=== PATIENT | male | born 1970 | race Caucasian/White ===

== ENCOUNTER → 2021-09-16 | Outpatient (CLI) | payer OTHER | END | disposition home or self-care (01) | LOC: RADMN 13:39 | PROVIDERS: ATTEND Legal Medicine | DX: M50.120 Mid-cervical disc disorder, unspecified level (principal); M25.78 Osteophyte, vertebrae; M25.511 Pain in right shoulder; M77.10 Lateral epicondylitis, unspecified elbow | CPT/HCPCS: 72040; 73030-TC; 73080-TC ==

== ENCOUNTER → 2021-10-05 | Outpatient (CLI) | payer OTHER | END | disposition home or self-care (01) | LOC: RADMN 09:30 | PROVIDERS: ATTEND Legal Medicine | DX: S56.911A Strain of unspecified muscles, fascia and tendons at forearm level, right arm, initial encounter (principal); M66.9 Spontaneous rupture of unspecified tendon; X58.XXXA Exposure to other specified factors, initial encounter; Y93.89 Activity, other specified; Y92.89 Other specified places as the place of occurrence of the external cause; Y99.8 Other external cause status | CPT/HCPCS: 73221 ==